=== PATIENT | male | born 1975 | race Caucasian/White ===

== ENCOUNTER 2020-03-18 07:58 | Outpatient (CLI) | payer OTHER, SELFPAY ==
[2020-03-18 09:00] LABS: Hematocrit 42.1 % (42.0-52.0); Hemoglobin 14.4 g/dL (14.0-18.0); Mean Corpuscular HGB Conc 34.2 g/dl (32-36); Mean Corpuscular Hemoglobin 33.2 pg (26-34); Mean Platelet Volume 9.8 fl (7.4-10.4); Platelet Count Result 349 k/mm3 (150-375); Red Blood Count 4.34 M/mm3 (4.6-6.20); Red Cell Distribution Width 12.9 % (11.5-14.5); White Blood Count 9.1 K/mm3 (4.5-10.0)
[2020-03-18 09:04] LABS: Add Urine Microscopic? NO; Appearance Urine Clear (Clear); Bilirubin Urine Negative (Negative); Blood Urine Negative (Negative); Color Urine Yellow (Yellow); Glucose Urine UA Negative (Negative); Ketones Urine Negative (Negative); Leukocyte Esterase Ur Negative LEU/UL (Negative); Nitrate Urine Negative (Negative); Protein Urine Negative (Negative); Specific Grav Ur 1.017 (1.001-1.035); Urobilinogen Urine Negative mg/dL (<2.0)
[2020-03-18 09:12] LABS: Alanine Aminotransferase 13 U/L (4-50); Albumin Level 4.5 g/dL (3.5-5.1); Alkaline Phosphatase 102 U/L (38-126); Anion Gap 6 mmol/L (8-16); Aspartate Amino Transferase 17 U/L (17-59); Bilirubin,Total 0.3 mg/dL (0.2-1.3); Blood Urea Nitrogen 15 mg/dL (9-20); Calcium 9.3 mg/dL (8.4-10.2); Carbon Dioxide 25 mmol/L (22-30); Chloride 106 mmol/L (98-107); Cholesterol 189 mg/dL (0-200); Estimated Glomerular Filt Rate > 60; Glucose 106 mg/dL (75-110); HDL Direct 36 mg/dL; Phosphorus 2.7 mg/dL (2.5-4.5); Potassium 4.5 mmol/L (3.4-5.0); Sodium 137 mmol/L (137-145); Triglycerides 193 mg/dL (<150)
[2020-03-18 09:14] LABS: Hemoglobin A1C 5.6 % (<5.7)
[2020-03-18 09:23] LABS: LDL Cholesterol Direct 111 mg/dL
[2020-03-18 10:12] LABS: Thyroid Stimulating Hormone Reflex 0.864 uIU/mL (0.465-4.68)
== END 2020-03-18 07:59 | disposition home or self-care (01) ==
PROVIDERS: PCP Emergency Medicine; Visit Provider Emergency Medicine
DX: E78.5 Hyperlipidemia, unspecified (principal); G25.81 Restless legs syndrome; K21.9 Gastro-esophageal reflux disease without esophagitis; R31.9 Hematuria, unspecified; R73.9 Hyperglycemia, unspecified
CPT/HCPCS: 36415; 80061; 80069; 80076; 81003; 83036; 84443; 85027

== ENCOUNTER 2021-01-20 10:14 | Emergency (ER) | payer OTHER, SELFPAY ==
--- NOTE | 2021-01-20 10:19 | ED.GENADULT ---
HPI - General Adult General Chief complaint: Neck Pain/Injury Stated complaint: Back, Neck, Shoulder and Arm pain Time Seen by Provider: 01/20/21 10:19 Source: patient and RN notes reviewed History of Present Illness HPI narrative: Patient is a 45-year-old male who presents the urgent care with complaints of neck pain radiating to the left shoulder and arm. Patient states that he had this issue approximately 1 year ago and has been placed on Flexeril and hydrocodone. Patient states he has been taking has muscle relaxer and the hydrocodone without much relief. States that he seen a chiropractor without any relief. Patient has not followed up with his PCP again. Denies of any chest pain or changes in the pain. Denies of any recent trauma, injury, pushing/pulling/heavy lifting. No other acute complaints. No acute distress noted. Patient ran a plan of care. Some parts of this dictation were generated by voice recognition software and may contain typographical and/or grammatical inaccuracies. Related Data Home Medications Medication Instructions Recorded Confirmed cyclobenzaprine 10 mg PO TID 01/20/21 01/20/21 Allergies Allergy/AdvReac Type Severity Reaction Status Date / Time cephalexin Allergy Intermediate Itching Verified 01/20/21 10:29 ciprofloxacin Allergy Intermediate Itching Verified 01/20/21 10:29 Review of Systems Review of Systems: Narrative: CONSTITUTIONAL: Denies fever, chills, or sweats. EYES: Denies visual changes, redness, or discharge. ENT: Denies rhinorrhea, congestion, sore throat, or otalgia. CARDIOVASCULAR: Denies chest pain, palpitations, or edema. RESPIRATORY: Denies cough or dyspnea. GASTROINTESTINAL: Denies abdominal pain, nausea, vomiting, or diarrhea. GENITOURINARY: Denies dysuria or hematuria. SKIN: Denies rash or itching. MUSCULOSKELETAL: Reports of neck pain radiating to the left shoulder and arm NEUROLOGIC: Denies headache, numbness, or weakness. All other systems reviewed are negative, except as documented in HPI. PMFSH Comments At the time of my signature, I reviewed and agree with the nursing past medical, surgical, social, and family history. There is no relevant family history pertinent to the patient complaint. Exam Narrative: Exam Narrative: GENERAL: This is a well-nourished, well-developed patient, in no apparent distress. HEAD: normocephalic, atraumatic. EYES: PERRL. Sclera clear/white. Vision is grossly intact. EARS: External ears normal NOSE: External nose normal with no obvious nasal discharge, nares without redness, no rhinorrhea. THROAT: Mucous membranes moist, posterior pharynx clear. NECK: Exacerbated pain with head lift and chin tuck. Flexion range of motion within normal limits. Mild diffuse cervical tenderness, more exacerbated to the left CARDIOVASCULAR: Regular rate and rhythm without murmurs, gallops, or rubs. RESPIRATORY: Clear to auscultation. Breath sounds equal bilaterally. No wheezes, rales, or rhonchi. SKIN: warm, intact with no suspicious lesions or rash, good texture and turgor. NEURO: awake, alert, and oriented to person, place and time. There were no obvious focal neurologic abnormalities. EXTREMITIES: No clubbing, cyanosis, or edema. Range of motion to left upper extremity within normal limits with positive strong left radial pulse and capillary refill less than 2 seconds Course Vital Signs Vital signs: Vital Signs Temperature 99.2 F 01/20/21 10:25 Pulse Rate 89 01/20/21 10:25 Respiratory Rate 20 01/20/21 10:25 Blood Pressure 120/69 01/20/21 10:25 Pulse Oximetry 100 01/20/21 10:25 Temperature 99.2 F 01/20/21 10:25 Pulse Rate 89 01/20/21 10:25 Respiratory Rate 20 01/20/21 10:25 Blood Pressure 120/69 01/20/21 10:25 Pulse Oximetry 100 01/20/21 10:25 Reviewed Medical Decision Making MDM Narrative Medical decision making narrative: Advised the patient to continue using his prescription medication as well as Flexeril.
[2021-01-20 10:25] VITALS: BP 120/69; PULSE 89; RESP 20; TEMP 37.3; O2SAT 100
== END 2021-01-20 10:40 | disposition home or self-care (01) ==
PROVIDERS: Emergency Provider Nurse Practitioner Family; PCP Family Medicine
DX: M54.12 Radiculopathy, cervical region (principal)
CPT/HCPCS: 99213; G0463

== ENCOUNTER 2021-01-22 09:41 | Outpatient (CLI) | payer OTHER, SELFPAY ==
--- NOTE | ~2021-01-22 | XR_ITS ---
EXAMINATION:XR cervical spine min 6V DATE: 01/22/2021 10:00 INDICATION: Neck pain TECHNIQUE: AP, lateral in neutral, flexion, extension, lateral swimmers and odontoid views of the cer vical spine are provided. COMPARISON: None FINDINGS: Alignment is normal. There is no laxity with flexion or extension. The odontoid is intact. No fracture is identified. The vertebral body heights are maintained. There is mild loss of intervert ebral disc space height at C5-6. Prevertebral soft tissues are normal. IMPRESSION: 1. Mild cervical spondylosis without acute findings. Reviewed, dictated and finalized at location A.
== END 2021-01-22 09:42 | disposition home or self-care (01) ==
LOC: ANHIMG 09:45
PROVIDERS: PCP Emergency Medicine; Visit Provider Emergency Medicine
DX: M47.892 Other spondylosis, cervical region (principal)
CPT/HCPCS: 72052